=== PATIENT | male | born 1965 | race Caucasian/White ===

== ENCOUNTER 2023-08-09 16:34 | Inpatient (IN) | payer MEDICAID ==
[~2023-08-09] VITALS: Ht 185.4 cm; Wt 65.5 kg
[2023-08-09 20:22] VITALS: TEMP 98.2
[2023-08-09 20:55] LABS: BASOPHILS % (AUTO) 0.5 % (0-1); EOSINOPHILS % (AUTO) 0.6 % (0-6); HEMATOCRIT 51.7 % (42.0-52.0); MEAN CORPUSCULAR HEMOGLOBIN 34.9 PG (27.0-31.0); MEAN CORPUSCULAR HGB CONC 34.7 g/dL (33.0-36.5); MEAN CORPUSCULAR VOLUME 100.5 FL (78-98); MEAN PLATELET VOLUME 7.8 FL (7.4-10.4); MONOCYTES # (AUTO) 0.4 X10'3 (0-0.9); MONOCYTES % (AUTO) 4.9 % (2-12); NEUTROPHILS # (AUTO) 5.8 X10'3 (1.8-7.7); PLATELET COUNT 236 X10'3 (140-440); RED BLOOD COUNT 5.15 X10'6 (4.70-6.10); RED CELL DISTRIBUTION WIDTH 14.5 % (11.5-14.5); WHITE BLOOD COUNT 8.3 X10'3 (4.5-11.0)
[2023-08-09 21:02] LABS: ALBUMIN 3.2 G/DL (3.4-5.0); ANION GAP 11 (8-16); BLOOD UREA NITROGEN 11 MG/DL (7-18); BUN/CREATININE RATIO 10.7 (10.0-20.0); CALCIUM 9.4 MG/DL (8.5-10.1); CHLORIDE 98 MMOL/L (99-107); CREATININE 1.03 MG/DL (0.60-1.10); GLUCOSE 281 MG/DL (70-104); POTASSIUM 4.1 MMOL/L (3.5-5.1); SODIUM 133 MMOL/L (135-145); TOTAL CARBON DIOXIDE 24.2 MMOL/L (24-32); eCRCL 72 ML/MIN; eGFR 74 ML/MIN
[2023-08-09] MEDS ORDERED: HYDR-3964 PO (21:59)
[2023-08-09] MEDS ORDERED: AMLO-708 PO (21:59)
[2023-08-09] MEDS ORDERED: LISI10TA27 PO (21:59)
[2023-08-09] MEDS ORDERED: METF-438 PO (21:59)
[2023-08-09] MEDS ORDERED: BECL10.62 INH (21:59)
[2023-08-09] MEDS ORDERED: ATOR-2 PO (21:59)
[2023-08-09] MEDS ORDERED: ALBU18HF2 (21:59)
[2023-08-09] MEDS: HYDROcodone/acetaminophen 10/325mg tab PO ONE (22:08)
[2023-08-09] MEDS: vancomycin/NS 1 GM ADD-VANTAGE 250 ML X 1 DOSE IV ONE (22:26)
[2023-08-09] MEDS ORDERED: magnesium hydroxide 30ml (MOM) UD suspension PO PRN (22:40)
[2023-08-09] MEDS ORDERED: ondansetron 4mg rapidly disintigrating tab PO PRN (22:40)
[2023-08-09] MEDS ORDERED: magnesium 2GM in 50ml NS 50 ML IV PRN (22:40)
[2023-08-09] MEDS ORDERED: ondansetron/PF 4mg/2ml inj IV PRN (22:40)
[2023-08-09] MEDS ORDERED: mag hydrox/Alum hydrox/simeth 30ml oral suspension PO PRN (22:40)
[2023-08-09] MEDS ORDERED: magnesium Cl slow-release 64mg tablet PO PRN (22:40)
[2023-08-09] MEDS ORDERED: magnesium 4gm in 100ml NS 100 ML IV PRN (22:40)
[2023-08-09] MEDS ORDERED: acetaminophen 325mg tablet PO PRN (22:40)
[2023-08-09] MEDS ORDERED: potassium Cl 20 mEq SR tablet PO PRN ×2 (22:40)
[2023-08-09] MEDS ORDERED: potassium Cl 40MEQ/1/2NS 520ml 520 ML IV PRN (22:40)
[2023-08-09] MEDS ORDERED: morphine 2 MG/ML inj. syringe IV PRN ×2 (22:40)
[2023-08-09] MEDS ORDERED: HYDROcodone/acetaminophen 5mg/325mg tablet PO PRN (22:40)
[2023-08-09] MEDS ORDERED: dextrose 50%-water 50ml dispensing syringe IV PRN ×2 (23:00)
[2023-08-09] MEDS ORDERED: DEXTROSE 15 GM of carb/4 tabs (each vial/BOTTLE has 4 tablets) PO PRN ×2 (23:00)
[2023-08-09] MEDS ORDERED: glucagon, human recombinant 1mg kit SUBCUT PRN (23:00)
[2023-08-09 23:01] LABS: APTT 27 SECONDS (22-32); PROTHROMBIN TIME 10.6 SECONDS (9.0-12.0)
[2023-08-09 23:11] LABS: ALANINE AMINOTRANSFERASE 31 U/L (12-78); ALBUMIN/GLOBULIN RATIO 0.9 (1.1-1.5); ALKALINE PHOSPHATASE 123 IU/L (46-116); ASPARTATE AMINO TRANSFERASE 26 U/L (10-37); BILIRUBIN,TOTAL 0.5 MG/DL (0.1-1.0); MAGNESIUM 1.6 MG/DL (1.5-2.4); PHOSPHORUS 4.5 MG/DL (2.3-4.5); PRO BRAIN NATRIURETIC PEPTIDE 667 PG/ML (0-125); TOTAL PROTEIN 6.7 G/DL (6.4-8.2)
[2023-08-09] MEDS ORDERED: hydrALAZINE 20mg/ml inj. IV SCH (23:15)
[2023-08-09 23:19] LABS: HEMOGLOBIN A1C 7.8 % (4.5-6.2)
[2023-08-09] MEDS: normal saline 1000ml 1,000 ML IV SCH (23:45)
[2023-08-09] MEDS: hydrALAZINE 20mg/ml inj. IV ONE (23:46)
[2023-08-10] MEDS: piperacillin/tazo 3.375gm/50ml 50 ML IV ONE (00:45)
[2023-08-10 01:37] LABS: BILIRUBIN,URINE NEGATIVE (Neg); CLARITY,URINE CLEAR (Clear); COLOR,URINE YELLOW (Yellow); GLUCOSE, URINE NEGATIVE (Neg); KETONES,URINE NEGATIVE (Neg); LEUKOCYTE ESTERASE ,URINE NEGATIVE (Neg); NITRITES, URINE NEGATIVE (Neg); OCCULT BLOOD,URINE TRACE-INTACT (Neg); PROTEIN,URINE 30 mg/dl (Neg); UROBILINOGEN,URINE 0.2 E.U/dL (0.2-1.0)
[2023-08-10 01:38] LABS: UA COLLECTION TYPE VOIDED
[2023-08-10] MEDS: INSULIN LISPRO 100 UNIT/ML INSULN.PEN MULTI-DOSE SQ ONE (01:43)
[2023-08-10 01:45] LABS: COARSE GRANULAR CAST 0-3 /LPF (NEGATIVE); HYALINE CASTS 0-3 /LPF (NEGATIVE); SQUAMOUS EPITHELIAL CELL,UR FEW /LPF (FEW)
[2023-08-10 01:47] LABS: BACTERIA,URINE FEW /HPF (Neg); RBC,URINE 0-2 /HPF (0-2); WBC,URINE 0-4 /HPF (0-4)
[2023-08-10 01:51] LABS: MUCUS STRANDS FEW /LPF (Neg)
[2023-08-10] MEDS: HYDROcodone/acetaminophen 10/325mg tab PO PRN (02:49)
[2023-08-10 04:45] VITALS: BP_DIAS 90
[2023-08-10] MEDS: K and/or MAG REPLACEMENT MC SCH (08:00)
[2023-08-10] MEDS: docusate sod 100mg capsule PO SCH (08:00)
[2023-08-10 08:11] LABS: BASOPHILS % (AUTO) 0.7 % (0-1); EOSINOPHILS # (AUTO) 0.1 X10'3 (0-0.9); EOSINOPHILS % (AUTO) 1.8 % (0-6); HEMATOCRIT 48.9 % (42.0-52.0); HEMOGLOBIN 16.9 g/dl (14.0-17.9); LYMPHOCYTES # (AUTO) 2.9 X10'3 (1.1-4.8); LYMPHOCYTES % (AUTO) 41.1 % (21-51); MEAN CORPUSCULAR HEMOGLOBIN 34.5 PG (27.0-31.0); MEAN CORPUSCULAR HGB CONC 34.5 g/dL (33.0-36.5); MEAN PLATELET VOLUME 7.4 FL (7.4-10.4); MONOCYTES # (AUTO) 0.5 X10'3 (0-0.9); NEUTROPHILS # (AUTO) 3.5 X10'3 (1.8-7.7); NEUTROPHILS % (AUTO) 49.4 % (42-75); PLATELET COUNT 204 X10'3 (140-440); RED BLOOD COUNT 4.89 X10'6 (4.70-6.10); RED CELL DISTRIBUTION WIDTH 14.5 % (11.5-14.5); WHITE BLOOD COUNT 7.1 X10'3 (4.5-11.0)
[2023-08-10] MEDS: budesonide 0.5mg/2ml UD nebule IH SCH (08:17)
[2023-08-10 08:19] VITALS: PULSE 57; RESP 18; O2SAT 97
[2023-08-10 08:25] VITALS: PULSE 59; RESP 18
[2023-08-10 08:46] LABS: ALANINE AMINOTRANSFERASE 25 U/L (12-78); ALBUMIN 2.9 G/DL (3.4-5.0); ALBUMIN/GLOBULIN RATIO 0.9 (1.1-1.5); ALKALINE PHOSPHATASE 106 IU/L (46-116); ANION GAP 8 (8-16); ASPARTATE AMINO TRANSFERASE 28 U/L (10-37); BILIRUBIN,TOTAL 0.7 MG/DL (0.1-1.0); BLOOD UREA NITROGEN 11 MG/DL (7-18); BUN/CREATININE RATIO 14.1 (10.0-20.0); CALCIUM 8.7 MG/DL (8.5-10.1); CHLORIDE 102 MMOL/L (99-107); CHOL/HDL RATIO 2.6 (0.00-4.99); CHOLESTEROL 146 MG/DL (0-200); CREATININE 0.78 MG/DL (0.60-1.10); GLUCOSE 140 MG/DL (70-104); HDL CHOLESTEROL 56 MG/DL (35-60); LDL CHOLESTEROL 72 MG/DL (50-100); MAGNESIUM 1.6 MG/DL (1.5-2.4); PHOSPHORUS 4.6 MG/DL (2.3-4.5); POTASSIUM 3.8 MMOL/L (3.5-5.1); SODIUM 136 MMOL/L (135-145); TOTAL CARBON DIOXIDE 25.8 MMOL/L (24-32); TOTAL PROTEIN 6.1 G/DL (6.4-8.2); TRIGLYCERIDES 116 MG/DL (20-135); eCRCL 96 ML/MIN; eGFR > 90 ML/MIN
[2023-08-10] MEDS: INSULIN LISPRO 100 UNIT/ML INSULN.PEN MULTI-DOSE SQ SCH ×2 (09:00→09:14)
[2023-08-10] MEDS: piperacillin/tazo 4.5gm/100ml 100 ML IV SCH (09:15)
[2023-08-10] MEDS: nicotine 21mg patch - 24 hr TD ONE (09:26)
[2023-08-10] MEDS: amLODIPine 5mg tablet PO SCH (09:30)
[2023-08-10] MEDS: atorvastatin 20mg tablet PO SCH (09:31)
[2023-08-10 09:32] VITALS: BP_SYST 175; PULSE 60
[2023-08-10] MEDS: lisinopril 10 MG tablet PO SCH (09:32)
[2023-08-10] MEDS: vancomycin/NS 1 GM ADD-VANTAGE 250 ML IV SCH (13:27)
[2023-08-10 13:39] VITALS: RESP 16
[2023-08-10] MEDS ORDERED: AMOX-580 PO (17:01)
[2023-08-10] MEDS ORDERED: LACT1CAP26 PO (17:01)
[2023-08-10] MEDS ORDERED: enoxaparin 40mg/0.4ml syringe SQ SCH (20:00)
[2023-08-10] MEDS ORDERED: insulin glargine (Lantus) pen - multi-dose SQ SCH (21:00)
[2023-08-11] MEDS ORDERED: VANCOMYCIN LEVEL IV ONE (08:30)
== END 2023-08-10 17:59 | disposition home or self-care (01) | DRG 383 ==
LOC: ER 16:35 → ED HOLD 22:46
PROVIDERS: ADMIT Surgery Surgical Critical Care; ATTEND Family Medicine
DX: L03.032 Cellulitis of left toe (principal); E87.8 Other disorders of electrolyte and fluid balance, not elsewhere classified; E87.1 Hypo-osmolality and hyponatremia; E11.65 Type 2 diabetes mellitus with hyperglycemia; D75.1 Secondary polycythemia; F12.10 Cannabis abuse, uncomplicated; F17.200 Nicotine dependence, unspecified, uncomplicated; I10 Essential (primary) hypertension; Z91.148 Patient's other noncompliance with medication regimen for other reason
CPT/HCPCS: 36415; 71045; 73630; 73718; 80053; 80061; 81001; 82948; 83036; 83605; 83735; 83880; 84100; 84145; 85025; 85610; 85730; 87040; 94640; 94760; 99291; G0378; J0360; J1815; J2543; J3370; J7030